=== PATIENT | female | born 2005 | race Caucasian/White ===

== ENCOUNTER 2023-09-06 14:06 | Emergency (ER) | payer SELFPAY ==
[~2023-09-06] VITALS: Ht 160 cm; Wt 87.8 kg
[2023-09-06] MEDS ORDERED: FOLI800C PO (14:14)
[2023-09-06] MEDS ORDERED: PRENTAB9 PO (14:39)
== END 2023-09-06 14:19 | disposition admitted as inpatient to this hospital (09) ==
LOC: M ED 14:06
DX: Z53.21 Procedure and treatment not carried out due to patient leaving prior to being seen by health care provider (principal)

== ENCOUNTER 2023-09-06 14:24 | Outpatient (CLI) ==
[~2023-09-06] VITALS: Ht 160 cm; Wt 87.0 kg
[~2023-09-06 14:24] MED LIST: FOLI800C PO
[2023-09-06] MEDS ORDERED: PRENTAB9 PO (14:39)
[2023-09-06] MEDS ORDERED: HOME MED LIST COMPLETE! XX SCH (14:40)
[2023-09-06 14:41] VITALS: BP 117/65
== END 2023-09-06 15:54 | disposition home or self-care (01) ==
LOC: M LDO 14:24
PROVIDERS: ATTEND Advanced Practice Midwife
DX: O9A.213 Injury, poisoning and certain other consequences of external causes complicating pregnancy, third trimester (principal); S30.0XXA Contusion of lower back and pelvis, initial encounter; Y92.009 Unspecified place in unspecified non-institutional (private) residence as the place of occurrence of the external cause; X58.XXXA Exposure to other specified factors, initial encounter; Y93.9 Activity, unspecified; O36.8130 Decreased fetal movements, third trimester, not applicable or unspecified; Z3A.30 30 weeks gestation of pregnancy; Z88.0 Allergy status to penicillin; Z88.2 Allergy status to sulfonamides
CPT/HCPCS: 59025; 76815; G0463